=== PATIENT | female | born 1990 | race Caucasian/White ===

== ENCOUNTER 2018-04-01 12:33 | Emergency (ER) | payer OTHER, SELFPAY | END 2018-04-01 15:10 | disposition left against medical advice (07) | LOC: M ED 12:33 | DX: Z53.29 Procedure and treatment not carried out because of patient's decision for other reasons (principal) ==

== ENCOUNTER → 2018-04-09 | Outpatient (REF) | payer OTHER | LOC: M LABDRAW1 12:09 | DX: Z34.90 Encounter for supervision of normal pregnancy, unspecified, unspecified trimester (principal) ==

== ENCOUNTER → 2018-06-10 | Outpatient (CLI) | payer OTHER | LOC: M SMT 11:08 | DX: Z36.89 Encounter for other specified antenatal screening (principal) | CPT/HCPCS: 36415 ==